=== PATIENT | female | born 1970 | race American Indian/Alaskan Native ===

== ENCOUNTER 2018-09-04 23:47 | Emergency (ER) | payer OTHER ==
[2018-09-05] MEDS ORDERED: BENADRYL IV ONE (00:23)
[2018-09-05] MEDS ORDERED: SUBLIMAZE IV ONE (00:23)
[2018-09-05] MEDS ORDERED: TORADOL IV ONE (00:25)
[2018-09-05] MEDS ORDERED: REGLAN IV ONE (00:26)
[2018-09-05 00:48] LABS: Basophils % (Auto) 0.3 % (0.0-1.8); Hematocrit 48.7 % (30.3-42.9); Hemoglobin 16.1 gm/dl (10.1-14.3); Lymphocytes # (Auto) 1.4 K/mm3 (1.2-5.4); Lymphocytes % (Auto) 16.9 % (13.4-35.0); Mean Corpuscular HGB Conc 33 % (30-34); Mean Corpuscular Volume 87 fl (79-97); Monocytes # (Auto) 0.1 K/mm3 (0.0-0.8); Monocytes % (Auto) 0.7 % (0.0-7.3); Platelet Count 280 K/mm3 (140-440); Red Blood Count 5.63 M/mm3 (3.65-5.03); Red Cell Distribution Width 13.7 % (13.2-15.2)
[2018-09-05 01:01] LABS: BUN/Creatinine Ratio 13; Blood Urea Nitrogen 12 mg/dL (7-17); Calcium 10.5 mg/dL (8.4-10.2); Hemolysis Index 14
--- NOTE | 2018-09-05 01:38 | Cat Scan Report ---
FINAL REPORT EXAM: CT HEAD/BRAIN WO CON HISTORY: headache COMPARISON: CT of the head from November 2015. TECHNIQUE: Axial images obtained skull base through vertex. FINDINGS: No acute intracranial hemorrhage, midline shift or pathologic extra axial fluid collection. Benign pu nctate calcification bilateral basal ganglia. Ventricles and cisterns are normal in size and configur ation for the patient's age. Rizvi-white differentiation preserved. Calvarium grossly intact. Visualiz ed ocular globes are grossly unremarkable. IMPRESSION: No grossly acute intracranial abnormality.
[2018-09-05] MEDS ORDERED: HumuLIN R IV ONE (01:56)
[2018-09-05] MEDS ORDERED: ZOFRAN IV ONE (02:04)
[2018-09-05] MEDS ORDERED: DILAUDID IV ONE ×2 (02:04→02:57)
--- NOTE | 2018-09-05 03:33 | Emergency Department Report ---
ED Headache HPI - General Chief Complaint: Headache Stated Complaint: CLUSTER HEADACHER Time Seen by Provider: 09/05/18 00:23 Source: patient, old records Exam Limitations: no limitations - History of Present Illness Initial Comments: 48-year-old female with a past medical history of cluster headaches, CVA with residual left-sided facial droop, COPD, hypertension, and obesity presents to the hospital complains of a left sided headache 4 days. Pain is intermittent, sharp in nature, and rated 10/10 in intensity. States she feels like a knife and stabbing left-sided for forehead and eye. She complains of some blurred vision to the left eye. Patient has had similar symptoms with cluster headaches in the past but this is more severe. Last cluster headache was approximately 4 months ago. Patient saw a primary care doctor today and received IM Toradol and Solu-Medrol. Patient apparently is on Imitrex and Seroquel, Atarax, and Remeron. Patient took 2 doses of her Imitrex prior to arrival. Positive nausea without pain without vomiting. No complaints of fever or new neurologic deficit. PMD: [place] Allergies/Adverse Reactions: Allergies lisinopril Allergy (Verified 05/06/13 10:48) Vomiting Home Medications: Ambulatory Orders Lortab 10 mg-300 mg/15 ml Elxr 12/11/14 Simvastatin 10 mg PO QHS 12/11/14 Verapamil ER [Calan SR] 240 mg PO BID 12/11/14 hydroCHLOROthiazide [Hctz] 25 mg PO QDAY 12/11/14 oxyCODONE /ACETAMINOPHEN [Percocet 5/325] 1 tab PO Q6HR PRN #20 tablet 12/11/14 Promethazine HCl [Phenergan] 25 mg RC PRN PRN #12 supp.rect 01/27/15 methylPREDNISolone [Medrol Dose Hi] 4 mg PO .TAPER #1 tab.ds.pk 01/27/15 Butalbit/Acetamin/Caff/Codeine [Fioricet/Codeine [id number]] 1 cap PO Q6HR PRN #20 cap 06/24/15 Albuterol Sulfate [Ventolin HFA] 2 puff IH Q4H PRN #1 hfa.aer.ad 10/07/15 Benzonatate [Tessalon Perles] 100 mg PO Q8HR #30 capsule 10/07/15 HYDROcodone/APAP 5-325 [[place] 5/325] 1 each PO Q4HR PRN #20 tablet 10/07/15 Ibuprofen [Motrin] 800 mg PO Q8HR PRN #30 tablet 10/07/15 Ondansetron [Zofran Odt] 4 mg PO Q6HR PRN #20 tab.rapdis 10/07/15 Prednisone [predniSONE 10 mg (6-Day Pack, 21 Tabs)] 10 mg PO .TAPER #1 tab.ds.pk 10/07/15 ED Review of Systems ROS: Stated complaint: CLUSTER HEADACHER Other details as noted in HPI Comment: All other systems reviewed and negative ED Past Medical Hx - Past Medical History Hx Hypertension: Yes Hx CVA: Yes Hx Heart Attack/AMI: No Hx Congestive Heart Failure: No Hx Diabetes: No Hx Deep Vein Thrombosis: No Hx Pulmonary Embolism: No Hx GERD: No Hx Liver Disease: No Hx Renal Disease: No Hx Sickle Cell Disease: No Hx Arthritis: No Hx Headaches / Migraines: Yes (cluster headache seen by neurologist Dr. Silver out of [facility]) Hx Seizures: No Hx Kidney Stones: Yes (lithotripsy) Hx Psychiatric Treatment: No Hx Asthma: No Hx COPD: Yes Hx Tuberculosis: No Hx Dementia: No Hx HIV: No - Surgical History Past Surgical History?: Yes Hx Coronary Stent: No Hx Open Heart Surgery: No Hx Pacemaker: No Hx Internal Defibrillator: No Hx Cholecystectomy: No Hx Appendectomy: Yes Hx Breast Surgery: No Additional Surgical History: x 3 - Social History Smoking Status: Never Smoker Substance Use Type: Alcohol - Medications Home Medications: Home Medications Medication Instructions Recorded Confirmed Last Taken Type Lortab 10 mg-300 mg/15 ml Elxr 12/11/14 12/11/14 Unknown History Simvastatin 10 mg PO QHS 12/11/14 12/11/14 Unknown History Verapamil ER [Calan SR] 240 mg PO BID 12/11/14 12/11/14 Unknown History hydroCHLOROthiazide [Hctz] 25 mg PO QDAY 12/11/14 12/11/14 Unknown History oxyCODONE /ACETAMINOPHEN [Percocet 1 tab PO Q6HR PRN #20 tablet 12/11/14 Unknown Rx 5/325] Promethazine HCl [Phenergan] 25 mg RC PRN PRN #12 supp.rect 01/27/15 Unknown Rx methylPREDNISolone [Medrol Dose 4 mg PO .TAPER #1 tab.ds.pk 01/27/15 Unknown Rx Hi] Butalbit/Acetamin/Caff/Codeine 1 cap PO Q6HR PRN #20 cap 06/24/15 Unknown Rx [Fioricet/Codeine [id number]] Albuterol Sulfate [Ventolin HFA] 2 puff IH Q4H PRN #1 hfa.aer.ad 10/07/15 Unknown Rx Benzonatate [Tessalon Perles] 100 mg PO Q8HR #30 capsule 10/07/15 Unknown Rx HYDROcodone/APAP 5-325 [[place] 1 each PO Q4HR PRN #20 tablet 10/07/15 Unknown Rx 5/325] Ibuprofen [Motrin] 800 mg PO Q8HR PRN #30 tablet 10/07/15 Unknown Rx Ondansetron [Zofran Odt] 4 mg PO Q6HR PRN #20 tab.rapdis 10/07/15 Unknown Rx Prednisone [predniSONE 10 mg 10 mg PO .TAPER #1 tab.ds.pk 10/07/15 Unknown Rx (6-Day Pack, 21 Tabs)] ED Physical Exam - General Limitations: No Limitations - Other Other exam information: General: Positive distress, patient rocking, complaining of severe pain Head exam: Atraumatic, normocephalic Eyes exam: Pupils equal reactive to light. Left eye cornea abrasion noted partially in the pupil field. ENT: Moist mucous membrane Neck exam: Normal inspection, full range of motion, no meningismus nontender Respiratory exam: Clear to auscultation bilateral, no wheezes, rales, crackles Cardiovascular: Normal rate and rhythm, normal heart sounds Abdomen: Soft, nondistended, and nontender, with normal bowel sounds, no rebound, or guarding Extremity: Full range of motion normal inspection no deformity Back: Normal Inspection, full range of motion, no tenderness Neurologic: Alert, oriented x3, left upper and lower facial weakness chronic as per patient, sensation to extremities and strength equal bilaterally and grossly intact. Skin: Warm, dry, intact ED Course Vital Signs 09/04/18 09/05/18 09/05/18 23:54 00:18 00:30 Temperature 97.5 F L Pulse Rate 107 H Respiratory 20 Rate Blood Pressure 173/121 181/121 181/121 O2 Sat by Pulse 97 98 Oximetry 09/05/18 09/05/18 09/05/18 00:45 01:00 03:25 Temperature Pulse Rate Respiratory Rate Blood Pressure 184/111 152/116 149/100 O2 Sat by Pulse 98 Oximetry - Consultations Consultation #1: 09/05/18 03:[address] Gee with [facility]. Patient accepted for transfer due to intractable pain. ED Medical Decision Making - Lab Data Result diagrams: 09/05/18 00:33 09/05/18 00:33 Lab Results 09/05/18 09/05/18 09/05/18 Range/Units 00:33 00:33 00:33 WBC 8.5 (4.5-11.0) K/mm3 RBC 5.63 H (3.65-5.03) M/mm3 Hgb 16.1 H (10.1-14.3) gm/dl Hct 48.7 H (30.3-42.9) % MCV 87 (79-97) fl MCH 29 (28-32) pg MCHC 33 (30-34) % RDW 13.7 (13.2-15.2) % Plt Count 280 (140-440) K/mm3 Lymph % (Auto) 16.9 (13.4-35.0) % [place] % (Auto) 0.7 (0.0-7.3) % Eos % (Auto) 0.0 (0.0-4.3) % Baso % (Auto) 0.3 (0.0-1.8) % Lymph # 1.4 (1.2-5.4) K/mm3 [place] # 0.1 (0.0-0.8) K/mm3 Eos # 0.0 (0.0-0.4) K/mm3 Baso # 0.0 (0.0-0.1) K/mm3 Seg Neutrophils % 82.1 H (40.0-70.0) % Seg Neutrophils # 6.9 (1.8-7.7) K/mm3 Sodium 131 L (137-145) mmol/L Potassium 3.9 (3.6-5.0) mmol/L Chloride 96.3 L (98-107) mmol/L Carbon Dioxide 18 L (22-30) mmol/L Anion Gap 21 mmol/L BUN 12 (7-17) mg/dL Creatinine 0.9 (0.7-1.2) mg/dL Estimated GFR > 60 ml/min BUN/Creatinine Ratio 13 % Glucose 373 H (65-100) mg/dL POC Glucose (70-105) Hemoglobin A1c (4-6) % Calcium 10.5 H (8.4-10.2) mg/dL HCG, Qual Negative (Negative) 09/05/18 09/05/18 Range/Units 00:33 02:23 WBC (4.5-11.0) K/mm3 RBC (3.65-5.03) M/mm3 Hgb (10.1-14.3) gm/dl Hct (30.3-42.9) % MCV (79-97) fl MCH (28-32) pg MCHC (30-34) % RDW (13.2-15.2) % Plt Count (140-440) K/mm3 Lymph % (Auto) (13.4-35.0) % [place] % (Auto) (0.0-7.3) % Eos % (Auto) (0.0-4.3) % Baso % (Auto) (0.0-1.8) % Lymph # (1.2-5.4) K/mm3 [place] # (0.0-0.8) K/mm3 Eos # (0.0-0.4) K/mm3 Baso # (0.0-0.1) K/mm3 Seg Neutrophils % (40.0-70.0) % Seg Neutrophils # (1.8-7.7) K/mm3 Sodium (137-145) mmol/L Potassium (3.6-5.0) mmol/L Chloride (98-107) mmol/L Carbon Dioxide (22-30) mmol/L Anion Gap mmol/L BUN (7-17) mg/dL Creatinine (0.7-1.2) mg/dL Estimated GFR ml/min BUN/Creatinine Ratio % Glucose (65-100) mg/dL POC Glucose 293 H (70-105) Hemoglobin A1c 6.6 H (4-6) % Calcium (8.4-10.2) mg/dL HCG, Qual (Negative) - Medical Decision Making Patient treated with Reglan, Benadryl, fentanyl, Toradol, Zofran, multiple doses of Dilaudid, and oxygen via nonrebreather and patient remains in distress and complaining of pain. Patient also is noted to have a cornea abrasion admits to rubbing her eye a lot secondary to pain. - Differential Diagnosis cluster, migraine, ICH, tension, sinusitis Critical Care Time: No Critical care attestation.: If time is entered above; I have spent that time in minutes in the direct care of this critically ill patient, excluding procedure time. ED Disposition Clinical Impression: Cluster headache, HTN (hypertension), Intractable pain Cornea abrasion Qualifiers: Laterality: left Disposition: DC/TX-70 ANOTHER TYPE HLTHCARE Is pt being admited?: No Condition: Stable Time of Disposition: 03:52
[2018-09-05 04:34] VITALS: BP 170/89
== END 2018-09-05 05:20 | disposition other institution (70) ==
LOC: ED 23:47
DX: G44.009 Cluster headache syndrome, unspecified, not intractable (principal); I10 Essential (primary) hypertension; J44.9 Chronic obstructive pulmonary disease, unspecified; E66.9 Obesity, unspecified; Z68.33 Body mass index [BMI] 33.0-33.9, adult; Z88.8 Allergy status to other drugs, medicaments and biological substances
CPT/HCPCS: 36415; 70450; 80048; 82962; 83036; 84703; 85025; 96374; 96375; 96376; 99285; J1170; J1200; J1885; J2405; J2765; J3010; J1815

== ENCOUNTER 2019-05-11 21:21 | Emergency (ER) | payer OTHER ==
[2019-05-11] MEDS ORDERED: ONDANSETRON 4 MG/2 ML INJ ONE (21:49)
[2019-05-11 22:00] LABS: Hematocrit 46.4 % (30.3-42.9); Hemoglobin 15.1 gm/dl (10.1-14.3); Mean Corpuscular HGB Conc 33 % (30-34); Mean Corpuscular Volume 85 fl (79-97); Platelet Count 292 K/mm3 (140-440); Red Blood Count 5.45 M/mm3 (3.65-5.03); Red Cell Distribution Width 13.8 % (13.2-15.2)
[2019-05-11] MEDS ORDERED: ONDANSETRON 4 MG/2 ML INJ IV ONE ×2 (22:05→22:48)
[2019-05-11] MEDS ORDERED: cephALEXin 500 MG CAP PO ONE (22:16)
[2019-05-11 22:30] LABS: BUN/Creatinine Ratio 13; Blood Urea Nitrogen 10 mg/dL (7-17); Calcium 9.5 mg/dL (8.4-10.2); Hemolysis Index 20
--- NOTE | 2019-05-11 22:30 | Emergency Department Report ---
HPI - General Chief Complaint: GI Bleed Time Seen by Provider: 05/11/19 21:57 - HPI HPI: 48-year-old -[place] female presents to the emergency department, brought in by her friend, after the patient passed out in her yard. The patient called her friend and told her that she had a blood sugar of about 30 and that was the reason why she passed out. She then proceeded to take her insulin to treat the hypoglycemia. Her friend says that she was eating a popsicle on the way in as well. Her main complaint is lower abdominal pain, nausea and vomi ting. Apparently she also told her friend that she has been having some rectal bleeding over the past 3 days. The patient has a past mental history of insulin-dependent diabetes, hypertension and a previous CVA without residual deficits. The patient later admitted to having some alcoholic drinks earlier while watching football says it is the low blood sugar that caused her to pass out. ED Past Medical Hx - Past Medical History Previous Medical History?: Yes Hx Hypertension: Yes Hx CVA: Yes Hx Heart Attack/AMI: No Hx Congestive Heart Failure: No Hx Diabetes: No Hx Deep Vein Thrombosis: No Hx Pulmonary Embolism: No Hx GERD: No Hx Liver Disease: No Hx Renal Disease: No Hx Sickle Cell Disease: No Hx Arthritis: No Hx Headaches / Migraines: Yes (cluster headache seen by neurologist Dr. Silver out of [facility]) Hx Seizures: No Hx Kidney Stones: Yes (lithotripsy) Hx Psychiatric Treatment: No Hx Asthma: No Hx COPD: Yes Hx Tuberculosis: No Hx Dementia: No Hx HIV: No - Surgical History Past Surgical History?: Yes Hx Coronary Stent: No Hx Open Heart Surgery: No Hx Pacemaker: No Hx Internal Defibrillator: No Hx Cholecystectomy: No Hx Appendectomy: Yes Hx Breast Surgery: No Additional Surgical History: x 3 - Social History Smoking Status: Never Smoker - Medications Home Medications: Home Medications Medication Instructions Recorded Confirmed Last Taken Type Lortab 10 mg-300 mg/15 ml Elxr 12/11/14 12/11/14 Unknown History Simvastatin 10 mg PO QHS 12/11/14 12/11/14 Unknown History Verapamil ER [Calan SR] 240 mg PO BID 12/11/14 12/11/14 Unknown History hydroCHLOROthiazide [Hctz] 25 mg PO QDAY 12/11/14 12/11/14 Unknown History oxyCODONE /ACETAMINOPHEN [Percocet 1 tab PO Q6HR PRN #20 tablet 12/11/14 Unknown Rx 5/325] Promethazine HCl [Phenergan] 25 mg RC PRN PRN #12 supp.rect 01/27/15 Unknown Rx methylPREDNISolone [Medrol Dose 4 mg PO .TAPER #1 tab.ds.pk 01/27/15 Unknown Rx Hi] Butalbit/Acetamin/Caff/Codeine 1 cap PO Q6HR PRN #20 cap 06/24/15 Unknown Rx [Fioricet/Codeine [id number]] Albuterol Sulfate [Ventolin HFA] 2 puff IH Q4H PRN #1 hfa.aer.ad 10/07/15 Unknown Rx Benzonatate [Tessalon Perles] 100 mg PO Q8HR #30 capsule 10/07/15 Unknown Rx HYDROcodone/APAP 5-325 [[place] 1 each PO Q4HR PRN #20 tablet 10/07/15 Unknown Rx 5/325] Ibuprofen [Motrin] 800 mg PO Q8HR PRN #30 tablet 10/07/15 Unknown Rx Ondansetron [Zofran Odt] 4 mg PO Q6HR PRN #20 tab.rapdis 10/07/15 Unknown Rx Prednisone [predniSONE 10 mg 10 mg PO .TAPER #1 tab.ds.pk 10/07/15 Unknown Rx (6-Day Pack, 21 Tabs)] ED Review of Systems ROS: Stated complaint: ABDOMINAL PAIN Other details as noted in HPI Comment: All other systems reviewed and negative Constitutional: denies: chills, fever Eyes: denies: eye pain, vision change ENT: denies: ear pain, throat pain Respiratory: denies: cough, shortness of breath Cardiovascular: syncope. denies: chest pain Gastrointestinal: abdominal pain, nausea, vomiting Genitourinary: denies: dysuria, discharge Musculoskeletal: denies: back pain, arthralgia Skin: denies: rash, lesions Neurological: denies: headache, weakness Physical Exam - Physical Exam Vital Signs: Vital Signs 05/11/19 05/11/19 21:27 21:32 Temperature 98.9 F Pulse Rate 115 H Respiratory 24 24 Rate Blood Pressure 148/89 O2 Sat by Pulse 99 99 Oximetry Physical Exam: GENERAL: Patient is sitting up in bed vomiting into a bag. HENT: Normocephalic. Atraumatic. Patient has moist mucous membranes. EYES: Extraocular motions are intact. Pupils equal reactive to light bilaterally. NECK: Supple. Trachea is midline. CHEST/LUNGS: Clear to auscultation. There is no respiratory distress noted. HEART/CARDIOVASCULAR: Regular. There is mild tachycardia. There is no murmur. ABDOMEN: Abdomen is soft. Lower abdominal tenderness to palpation. No g uarding. Patient has normal bowel sounds. There is no abdominal distention. SKIN: Skin is warm and dry. NEURO: The patient is awake and cooperative but does appear intoxicated. The patient has no focal neurologic deficits. Normal speech. Cranial nerves II through XII grossly intact. MUSCULOSKELETAL: There is no tenderness or deformity. There is no evidence of acute injury. RECTAL: There is a small nonthrombosed hemorrhoid at the 7 o'clock position. No gross blood seen. Stool negative on guaiac testing but there is not much stool available. ED Course Vital Signs 05/11/19 05/11/19 21:27 21:32 Temperature 98.9 F Pulse Rate 115 H Respiratory 24 24 Rate Blood Pressure 148/89 O2 Sat by Pulse 99 99 Oximetry - Reevaluation(s) Reevaluation #1: 05/12/19 01:43 Lab Results 05/11/19 05/11/19 05/11/19 Range/Units 21:30 21:30 21:30 WBC 11.0 (4.5-11.0) K/mm3 RBC 5.45 H (3.65-5.03) M/mm3 Hgb 15.1 H (10.1-14.3) gm/dl Hct 46.4 H (30.3-42.9) % MCV 85 (79-97) fl MCH 28 (28-32) pg MCHC 33 (30-34) % RDW 13.8 (13.2-15.2) % Plt Count 292 (140-440) K/mm3 Lymph # Afloat Cryptologic Manager Add Manual Diff Complete Total Counted 100 Seg Neuts % (Manual) 47.0 (40.0-70.0) % Band Neutrophils % 0 % Lymphocytes % (Manual) 46.0 H (13.4-35.0) % Reactive Lymphs % (Man) 0 % Monocytes % (Manual) 6.0 (0.0-7.3) % Eosinophils % (Manual) 1.0 (0.0-4.3) % Basophils % (Manual) 0 (0.0-1.8) % Metamyelocytes % 0 % Myelocytes % 0 % Promyelocytes % 0 % Blast Cells % 0 % Nucleated RBC % Not Reportable Seg Neutrophils # Man 5.2 (1.8-7.7) K/mm3 Band Neutrophils # 0.0 K/mm3 Lymphocytes # (Manual) 5.1 (1.2-5.4) K/mm3 Abs React Lymphs (Man) 0.0 K/mm3 Monocytes # (Manual) 0.7 (0.0-0.8) K/mm3 Eosinophils # (Manual) 0.1 (0.0-0.4) K/mm3 Basophils # (Manual) 0.0 (0.0-0.1) K/mm3 Metamyelocytes # 0.0 K/mm3 Myelocytes # 0.0 K/mm3 Promyelocytes # 0.0 K/mm3 Blast Cells # 0.0 K/mm3 WBC Morphology Not Reportable Hypersegmented Neuts Not Reportable Hyposegmented Neuts Not Reportable Hypogranular Neuts Not Reportable Smudge Cells Not Reportable Toxic Granulation Not Reportable Toxic Vacuolation Not Reportable Dohle Bodies Not Reportable Pelger-Huet Anomaly Not Reportable Omar Rods Not Reportable Platelet Estimate Appears normal Clumped Platelets Not Reportable Plt Clumps, EDTA Not Reportable Large Platelets Not Reportable Giant Platelets Not Reportable Platelet Satelliting Not Reportable Plt Morphology Comment Not Reportable RBC Morphology Not Reportable Dimorphic RBCs Not Reportable Polychromasia Not Reportable Hypochromasia Not Reportable Poikilocytosis Not Reportable Anisocytosis 1+ Microcytosis Not Reportable Macrocytosis Not Reportable Spherocytes Not Reportable Pappenheimer Bodies Not Reportable Sickle Cells Not Reportable Target Cells Not Reportable Tear Drop Cells Few Ovalocytes Not Reportable Helmet Cells Not Reportable [place]ila-[place] Bodies Not Reportable Indiahoma Rings Not Reportable [place] Cells Not Reportable Bite Cells Not Reportable Crenated Cell Not Reportable Elliptocytes Not Reportable Acanthocytes (Spur) Not Reportable Rouleaux Not Reportable Hemoglobin C Crystals Not Reportable Schistocytes Not Reportable Malaria parasites Not Reportable Jose Bodies Not Reportable Hem Pathologist Commnt No VBG pH (7.320-7.420) Sodium 137 (137-145) mmol/L Potassium 4.1 (3.6-5.0) mmol/L Chloride 95.9 L (98-107) mmol/L Carbon Dioxide 19 L (22-30) mmol/L Anion Gap 26 mmol/L BUN 10 (7-17) mg/dL Creatinine 0.8 (0.7-1.2) mg/dL Estimated GFR > 60 ml/min BUN/Creatinine Ratio 13 % Glucose 349 H (65-100) mg/dL Calcium 9.5 (8.4-10.2) mg/dL Total Bilirubin (0.1-1.2) mg/dL Direct Bilirubin (0-0.2) mg/dL Indirect Bilirubin mg/dL AST (5-40) units/L ALT (7-56) units/L Alkaline Phosphatase (35-129) units/L Total Protein (6.3-8.2) g/dL Albumin (3.9-5) g/dL Albumin/Globulin Ratio % HCG, Qual (Negative) Plasma/Serum Alcohol 0.23 H (0-0.07) % 05/11/19 05/11/19 05/11/19 Range/Units 22:40 22:40 22:40 WBC (4.5-11.0) K/mm3 RBC (3.65-5.03) M/mm3 Hgb (10.1-14.3) gm/dl Hct (30.3-42.9) % MCV (79-97) fl MCH (28-32) pg MCHC (30-34) % RDW (13.2-15.2) % Plt Count (140-440) K/mm3 Lymph # Add Manual Diff Total Counted Seg Neuts % (Manual) (40.0-70.0) % Band Neutrophils % % Lymphocytes % (Manual) (13.4-35.0) % Reactive Lymphs % (Man) % Monocytes % (Manual) (0.0-7.3) % Eosinophils % (Manual) (0.0-4.3) % Basophils % (Manual) (0.0-1.8) % Metamyelocytes % % Myelocytes % % Promyelocytes % % Blast Cells % % Nucleated RBC % Seg Neutrophils # Man (1.8-7.7) K/mm3 Band Neutrophils # K/mm3 Lymphocytes # (Manual) (1.2-5.4) K/mm3 Abs React Lymphs (Man) K/mm3 Monocytes # (Manual) (0.0-0.8) K/mm3 Eosinophils # (Manual) (0.0-0.4) K/mm3 Basophils # (Manual) (0.0-0.1) K/mm3 Metamyelocytes # K/mm3 Myelocytes # K/mm3 Promyelocytes # K/mm3 Blast Cells # K/mm3 WBC Morphology Hypersegmented Neuts Hyposegmented Neuts Hypogranular Neuts Smudge Cells Toxic Granulation Toxic Vacuolation Dohle Bodies Pelger-Huet Anomaly Omar Rods Platelet Estimate Clumped Platelets Plt Clumps, EDTA Large Platelets Giant Platelets Platelet Satelliting Plt Morphology Comment RBC Morphology Dimorphic RBCs Polychromasia Hypochromasia Poikilocytosis Anisocytosis Microcytosis Macrocytosis Spherocytes Pappenheimer Bodies Sickle Cells Target Cells Tear Drop Cells Ovalocytes Helmet Cells Brambila-[place] Bodies Indiahoma Rings [place] Cells Bite Cells Crenated Cell Elliptocytes Acanthocytes (Spur) Rouleaux Hemoglobin C Crystals Schistocytes Malaria parasites Jose Bodies Hem Pathologist Commnt VBG pH 7.380 (7.320-7.420) Sodium (137-145) mmol/L Potassium (3.6-5.0) mmol/L Chloride (98-107) mmol/L Carbon Dioxide (22-30) mmol/L Anion Gap mmol/L BUN (7-17) mg/dL Creatinine (0.7-1.2) mg/dL Estimated GFR ml/min BUN/Creatinine Ratio % Glucose (65-100) mg/dL Calcium (8.4-10.2) mg/dL Total Bilirubin 0.40 (0.1-1.2) mg/dL Direct Bilirubin < 0.2 (0-0.2) mg/dL Indirect Bilirubin 0.2 mg/dL AST 87 H (5-40) units/L ALT 88 H (7-56) units/L Alkaline Phosphatase 138 H (35-129) units/L Total Protein 7.6 (6.3-8.2) g/dL Albumin 4.4 (3.9-5) g/dL Albumin/Globulin Ratio 1.4 % HCG, Qual Negative (Negative) Plasma/Serum Alcohol (0-0.07) % ED Medical Decision Making - Lab Data Result diagrams: 05/11/19 21:30 05/11/19 21:30 - EKG Data -: EKG Interpreted by Me EKG shows normal: sinus rhythm, axis, intervals, QRS complexes, ST-T waves Rate: normal - EKG Data When compared to previous EKG there are: previous EKG unavailable Interpretation: normal EKG - Radiology Data Radiology results: report reviewed CT ABDOMEN AND PELVIS WITH CONTRAST INDICATION / CLINICAL INFORMATION: Abd pain. TECHNIQUE: Axial CT images were obtained through the abdomen and pelvis after 100 mL Omnipaque [address] scans at this location are performed using CT dose reduction for ALARA by means of automated exposure control. COMPARISON: None available. FINDINGS: LOWER CHEST: Visualized lung bases are clear. Several mildly prominent but not technically enlarged hilar lymph nodes are seen. LIVER: Hepatomegaly and hepatic steatosis. Scattered areas of hyperattenuation within the liver likely represent fat sparing. BILIARY SYSTEM: No significant abnormality. PANCREAS: No significant abnormality. SPLEEN: No significant abnormality. ADRENALS: No significant abnormality. KIDNEYS and URETERS: Several bilateral subcentimeter renal low densities, too small to characterize but statistically benign. Punctate nonobstructive stone in the left upper pole. STOMACH / BOWEL: Scattered colonic diverticula without CT evidence of acute diverticulitis. The appendix is not definitively seen but there is no CT evidence of acute appendicitis. PERITONEUM: No free fluid. No free air. No fluid collection. LYMPH NODES: No significant adenopathy. VASCULAR STRUCTURES: No significant abnormality. URINARY BLADDER: No significant abnormality. REPRODUCTIVE ORGANS: No significant abnormality. ADDITIONAL FINDINGS: None. SKELETAL SYSTEM: No significant abnormality. IMPRESSION: 1. No acute process identified within the abdomen or pelvis to explain patient's abdominal pain. 2. Hepatomegaly and hepatic steatosis. 3. Punctate nonobstructive left renal stone. - Medical Decision Making This patient presents to the emergency department with complaint of abdominal pain. There also was some type of questionable syncopal episode earlier in the evening. Since my examination, the patient has been awake, alert and oriented, although she does appear intoxicated. The patient says that her blood sugar was 30 and therefore she took her insulin as treatment but also says that she ate 2 popsicles. Her blood sugar came back at about 340 from serum blood draw. She was given a liter of IV fluid and 6 units of IV insulin and her blood sugar came down to about 200. The rest the patient's labs are mostly unremarkable except for some elevated LFTs. A CT scan of the abdomen and pelvis was done with IV contrast that does not show any acute process but does show some hepatomegaly and hepatic steatosis. The patient says she is aware of a history of fatty liver disease. She also is complaining of some rectal bleeding. On examination there is no gross blood and the small amount of stool obtained was negative on guaiac testing. She had a hemoglobin of greater than 15. Her vital signs are stable throughout her ED course. Patient is feeling improved. The patient did not leave a urine sample to test for urinary tract infection, but did not want to stay any further to wait for a urinalysis. Patient has [employer] insurance and therefore has good follow-up with primary care and should have easy access to gastroenterology. She was given a referral for [facility], just in case, and understands that she needs to follow-up with gastroenterology regarding her abdominal pain and rectal bleeding, and may need a colonoscopy in the near future. Otherwise she has been instructed to return to the emergency Department with any worsening of her symptoms or any acute distress. - Differential Diagnosis alcohol intoxication, hypoglycemia, DKA, hemorrhoids, malignancy Critical Care Time: No Critical care attestation.: If time is entered above; I have spent that time in minutes in the direct care of this critically ill patient, excluding procedure time. ED Disposition Clinical Impression: Rectal bleeding, Elevated liver enzymes Alcohol intoxication Qualifiers: Complication of substance-induced condition: uncomplicated Qualified Code(s): F10.920 - Alcohol use, unspecified with intoxication, uncomplicated Abdominal pain Qualifiers: Abdominal location: lower abdomen, unspecified Qualified Code(s): R10.30 - Lower abdominal pain, unspecified Disposition: DC-01 TO HOME OR SELFCARE Is pt being admited?: No Condition: Stable Instructions: Rectal Bleeding (ED), Alcohol Intoxication (ED), Abdominal Pain (ED) Additional Instructions: Please follow-up with your primary care physician in the next few days. I am giving him a referral for a local conventions assistant, Dr. Sneed, to follow up regarding the rectal bleeding and abdominal pain. You may need to see someone through the [employer] system. Return to the emergency Department with any worsening of your symptoms or any acute distress. Referrals: SHASHANK BACH [Other] - 2-3 Days YARED SNEED MD [Staff Physician] - 2-3 Days Forms: Accompanied Note Time of Disposition: 01:05
[2019-05-11] MEDS ORDERED: INSULIN REGULAR, HUMAN 100 UNITS/1 ML IV ONE (22:38)
[2019-05-11] MEDS ORDERED: SODIUM CHLORIDE 0.9% 1000 ML 1,000 ML IV ONE (22:38)
[2019-05-11 22:43] LABS: Basophils % (Manual) 0 % (0.0-1.8); Total Cells Counted 100
[2019-05-11 22:44] VITALS: BP 102/46
[2019-05-11 22:44] LABS: Anisocytosis 1+
[2019-05-11 22:45] LABS: Tear Drop Cells Few
[2019-05-11 23:36] LABS: Alanine Aminotransferase 88 units/L (7-56); Albumin 4.4 g/dL (3.9-5)
[2019-05-11 23:42] LABS: Bilirubin,Direct < 0.2 mg/dL (0-0.2)
--- NOTE | 2019-05-12 00:51 | Cat Scan Report ---
CT ABDOMEN AND PELVIS WITH CONTRAST INDICATION / CLINICAL INFORMATION: Abd pain. TECHNIQUE: Axial CT images were obtained through the abdomen and pelvis after 100 mL Omnipaque [address] scans at this location are performed using CT dose reduction for ALARA by means of automated exposure control. COMPARISON: None available. FINDINGS: LOWER CHEST: Visualized lung bases are clear. Several mildly prominent but not technically enlarged h ilar lymph nodes are seen. LIVER: Hepatomegaly and hepatic steatosis. Scattered areas of hyperattenuation within the liver likel y represent fat sparing. BILIARY SYSTEM: No significant abnormality. PANCREAS: No significant abnormality. SPLEEN: No significant abnormality. ADRENALS: No significant abnormality. KIDNEYS and URETERS: Several bilateral subcentimeter renal low densities, too small to characterize b ut statistically benign. Punctate nonobstructive stone in the left upper pole. STOMACH / BOWEL: Scattered colonic diverticula without CT evidence of acute diverticulitis. The appen rosalina is not definitively seen but there is no CT evidence of acute appendicitis. PERITONEUM: No free fluid. No free air. No fluid collection. LYMPH NODES: No significant adenopathy. VASCULAR STRUCTURES: No significant abnormality. URINARY BLADDER: No significant abnormality. REPRODUCTIVE ORGANS: No significant abnormality. ADDITIONAL FINDINGS: None. SKELETAL SYSTEM: No significant abnormality. IMPRESSION: 1. No acute process identified within the abdomen or pelvis to explain patient's abdominal pain. 2. Hepatomegaly and hepatic steatosis. 3. Punctate nonobstructive left renal stone. Signer Name: Aleena Restrepo MD Signed: 05/12/2019 12:46 AM Workstation Name: [id number]
== END 2019-05-12 01:21 | disposition home or self-care (01) ==
LOC: ED 21:21
DX: K62.5 Hemorrhage of anus and rectum (principal); F10.920 Alcohol use, unspecified with intoxication, uncomplicated; I10 Essential (primary) hypertension; G43.909 Migraine, unspecified, not intractable, without status migrainosus; J44.9 Chronic obstructive pulmonary disease, unspecified; Z86.73 Personal history of transient ischemic attack (TIA), and cerebral infarction without residual deficits; Z98.890 Other specified postprocedural states; Z90.49 Acquired absence of other specified parts of digestive tract; Z79.899 Other long term (current) drug therapy; Z88.8 Allergy status to other drugs, medicaments and biological substances
CPT/HCPCS: 36415; 74177; 80048; 80076; 82805; 82962; 84703; 85007; 85025; 93005; 93010; 96374; 96375; 96376; 99284; J2405; J7030; Q9967; 80320; G0480; J1815

== ENCOUNTER 2019-06-04 15:38 | Emergency (ER) | payer OTHER ==
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
[2019-06-04 16:40] VITALS: BP 138/88
== END 2019-06-04 16:45 | disposition home or self-care (01) ==
LOC: ED 15:38
DX: G44.009 Cluster headache syndrome, unspecified, not intractable (principal); I10 Essential (primary) hypertension; J44.9 Chronic obstructive pulmonary disease, unspecified; Z88.8 Allergy status to other drugs, medicaments and biological substances; Z87.442 Personal history of urinary calculi
CPT/HCPCS: 82962; 99284

== ENCOUNTER 2020-07-04 10:26 | Emergency (ER) | payer OTHER ==
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
[2020-07-04 14:51] LABS: Basophils # (Auto) 0.1 K/mm3 (0.0-0.1); Basophils % (Auto) 0.8 % (0.0-1.8); Eosinophils % (Auto) 0.5 % (0.0-4.3); Hematocrit 48.6 % (30.3-42.9); Hemoglobin 16.1 gm/dl (10.1-14.3); Lymphocytes # (Auto) 3.8 K/mm3 (1.2-5.4); Lymphocytes % (Auto) 48.3 % (13.4-35.0); Mean Corpuscular HGB Conc 33 % (30-34); Mean Corpuscular Volume 88 fl (79-97); Monocytes # (Auto) 0.5 K/mm3 (0.0-0.8); Monocytes % (Auto) 5.9 % (0.0-7.3); Platelet Count 302 K/mm3 (140-440); Red Blood Count 5.53 M/mm3 (3.65-5.03); Red Cell Distribution Width 15.2 % (13.2-15.2)
[2020-07-04 15:09] LABS: Alanine Aminotransferase 108 units/L (7-56); Albumin 3.9 g/dL (3.9-5); Blood Urea Nitrogen 7 mg/dL (7-17); Calcium 8.8 mg/dL (8.4-10.2); Hemolysis Index 10
[2020-07-04] MEDS ORDERED: POTASSIUM CHLORIDE ER 20 MEQ TAB PO ONE (15:11)
[2020-07-04 15:15] LABS: BUN/Creatinine Ratio 10
[2020-07-04 16:39] LABS: Bilirubin,Urine NEG (Negative); Blood,Urine SM (Negative); Color,Urine Yellow (Yellow); Mucus,Urine 3+ /HPF; Urobilinogen,Urine < 2.0 mg/dL (<2.0)
[2020-07-04 16:46] LABS: Amphetamine Screen,Urine Negative; Benzodiazepines Screen,Urine Negative; Cannabinoid Screen,Urine Negative; Cocaine Screen,Urine Negative; Methadone Screen,Urine Negative; Opiate Screen,Urine Negative
[2020-07-05] MEDS ORDERED: ONDANSETRON 4 MG ODT TAB ONE (06:22)
[2020-07-05] MEDS ORDERED: ONDANSETRON 4 MG ODT TAB PO ONE (06:24)
[2020-07-05 07:52] VITALS: BP 166/63
== END 2020-07-05 08:27 ==
LOC: ED 10:26 → EEVIPCON 10:26 → ED 07-05 08:27
DX: F20.9 Schizophrenia, unspecified (principal); I10 Essential (primary) hypertension; N20.0 Calculus of kidney; J44.9 Chronic obstructive pulmonary disease, unspecified; Z86.73 Personal history of transient ischemic attack (TIA), and cerebral infarction without residual deficits; Z79.4 Long term (current) use of insulin; Z79.82 Long term (current) use of aspirin; Z79.899 Other long term (current) drug therapy; Z88.8 Allergy status to other drugs, medicaments and biological substances
CPT/HCPCS: 36415; 80053; 80307; 80320; 81001; 82805; 82962; 84703; 85025; G0480; Q0162

== ENCOUNTER 2021-05-15 12:39 | Emergency (ER) | payer OTHER ==
[2021-05-15] MEDS ORDERED: LORazepam 2 MG/ML VIAL IM ONE (12:59)
--- NOTE | 2021-05-15 13:03 | Emergency Department Report ---
ED Alcohol HPI - General Stated Complaint: MH EVAL Time Seen by Provider: 05/15/21 12:43 Source: EMS Mode of arrival: Stretcher - History of Present Illness Initial Comments: 50-year-old female, history of alcohol abuse, schizophrenia, bipolar disorder, hypertension, diabetes, presents to ED for evaluation. Per EMS, patient was released from [place] on yesterday for alcohol detox. Patient apparently told EMS that they released her too soon. Patient's son called EMS because patient was agitated and violent with him. When EMS arrived, they found patient in her room drinking a bottle of peach vodka. Patient apparently made the statement that she wanted to kill "herself and everybody else." At this time, patient is intoxicated, agitated, yelling, cursing, not answering any questions directly MD Complaint: alcohol intoxication Last Drink: just KENNEL KEEPER Chronic Alcohol Use: Yes Associated Symptoms: denies other symptoms Treatments Prior to Arrival: physical restraints - Related Data Home Medications Medication Instructions Recorded Confirmed Last Taken Aspirin [Aspirin BABY CHEW TAB] 81 mg PO QDAY 11/03/19 11/03/19 Unknown Insulin NPH Hum/Reg Insulin Hm 50 unit SQ BID 11/03/19 11/03/19 Unknown [HumuLIN 70/30 Kwikpen] Insulin Regular, Human [HumuLIN R] 10 unit SQ DAILY 11/03/19 11/03/19 Unknown Quetiapine Fumarate [SEROquel] 50 mg PO QDAY 11/03/19 11/03/19 Unknown Quetiapine Fumarate [SEROquel] 600 mg PO HS 11/03/19 11/03/19 Unknown amLODIPine 5 mg PO DAILY 11/03/19 11/03/19 Unknown hydroCHLOROthiazide 25 mg PO DAILY 11/03/19 11/03/19 Unknown [Hydrochlorothiazide] metFORMIN [Glucophage] 500 mg PO QDAY 11/03/19 11/03/19 Unknown Previous Rx's Medication Instructions Recorded Last Taken Type Pantoprazole [Protonix TAB] 40 mg PO BID #60 tablet 11/04/19 Unknown Rx Allergies Allergy/AdvReac Type Severity Reaction Status Date / Time lisinopril Allergy Vomiting Verified 05/16/21 08:12 ED Review of Systems ROS: Stated complaint: MH EVAL Other details as noted in HPI Comment: Unobtainable due to pts medical conditions Psychiatric: homicidal thoughts, suicidal thoughts ED Past Medical Hx - Past Medical History Hx Hypertension: Yes Hx CVA: Yes Hx Diabetes: Yes (per pt an admission on 07/04/20) Hx Headaches / Migraines: Yes (cluster headache seen by neurologist Dr. Silver out of [facility]) Hx Kidney Stones: Yes (lithotripsy) Hx COPD: Yes - Surgical History Hx Appendectomy: Yes Additional Surgical History: x 3 - Social History Smoking Status: Unknown if ever smoked Substance Use Type: None - Medications Home Medications: Home Medications Medication Instructions Recorded Confirmed Last Taken Type Aspirin [Aspirin BABY CHEW TAB] 81 mg PO QDAY 11/03/19 11/03/19 Unknown History Insulin NPH Hum/Reg Insulin Hm 50 unit SQ BID 11/03/19 11/03/19 Unknown History [HumuLIN 70/30 Kwikpen] Insulin Regular, Human [HumuLIN R] 10 unit SQ DAILY 11/03/19 11/03/19 Unknown History Quetiapine Fumarate [SEROquel] 50 mg PO QDAY 11/03/19 11/03/19 Unknown History Quetiapine Fumarate [SEROquel] 600 mg PO HS 11/03/19 11/03/19 Unknown History amLODIPine 5 mg PO DAILY 11/03/19 11/03/19 Unknown History hydroCHLOROthiazide 25 mg PO DAILY 11/03/19 11/03/19 Unknown History [Hydrochlorothiazide] metFORMIN [Glucophage] 500 mg PO QDAY 11/03/19 11/03/19 Unknown History Pantoprazole [Protonix TAB] 40 mg PO BID #60 tablet 11/04/19 Unknown Rx ED Physical Exam - General General appearance: alert, appears intoxicated - Head Head exam: Present: atraumatic, normocephalic - Eye Eye exam: Present: normal appearance - ENT ENT exam: Present: mucous membranes moist - Neck Neck exam: Present: normal inspection - Respiratory Respiratory exam: Present: normal lung sounds bilaterally. Absent: respiratory distress - Cardiovascular Cardiovascular Exam: Present: regular rate, normal rhythm - GI/Abdominal GI/Abdominal exam: Present: soft. Absent: distended - Extremities Exam Extremities exam: Present: normal inspection - Neurological Exam Neurological exam: Present: alert, oriented X3 - Psychiatric Psychiatric exam: Present: agitated, other (Patient is yelling, screaming, cursing, combative) - Skin Skin exam: Present: warm, dry, intact, normal color ED Course Vital Signs 05/15/21 05/15/21 05/15/21 12:58 13:02 13:09 Temperature Pulse Rate Respiratory Rate Blood Pressure Blood Pressure [Left] O2 Sat by Pulse 93 94 96 Oximetry 05/15/21 05/15/21 05/15/21 13:16 13:30 13:46 Temperature Pulse Rate Respiratory Rate Blood Pressure 99/57 102/65 Blood Pressure [Left] O2 Sat by Pulse 96 91 90 Oximetry 05/15/21 05/15/21 05/15/21 14:00 14:09 14:16 Temperature 98.1 F Pulse Rate Respiratory Rate Blood Pressure 105/61 107/76 Blood Pressure [Left] O2 Sat by Pulse 97 94 Oximetry 05/15/21 05/15/21 05/15/21 14:30 14:40 14:46 Temperature Pulse Rate 98 H Respiratory 12 Rate Blood Pressure 99/73 103/75 Blood Pressure 99/73 [Left] O2 Sat by Pulse 96 96 95 Oximetry 05/15/21 05/15/21 05/15/21 15:00 15:15 15:16 Temperature Pulse Rate 104 H Respiratory Rate Blood Pressure 105/61 107/77 Blood Pressure [Left] O2 Sat by Pulse 98 93 Oximetry 05/15/21 05/15/21 05/15/21 15:30 15:46 15:47 Temperature Pulse Rate 99 H Respiratory Rate Blood Pressure 103/75 106/72 Blood Pressure [Left] O2 Sat by Pulse 98 99 Oximetry 05/15/21 05/15/21 05/15/21 16:00 16:16 16:30 Temperature Pulse Rate Respiratory Rate Blood Pressure 103/70 85/46 84/43 Blood Pressure [Left] O2 Sat by Pulse 98 100 99 Oximetry 05/15/21 05/15/21 05/15/21 17:00 17:20 17:30 Temperature Pulse Rate 99 H 93 H Respiratory Rate Blood Pressure 103/55 114/75 Blood Pressure [Left] O2 Sat by Pulse 86 Oximetry 05/15/21 05/15/21 05/15/21 17:34 17:49 18:04 Temperature Pulse Rate Respiratory Rate Blood Pressure 119/77 95/65 91/58 Blood Pressure [Left] O2 Sat by Pulse Oximetry 05/15/21 05/15/21 05/15/21 18:20 18:36 18:55 Temperature Pulse Rate Respiratory Rate Blood Pressure 78/55 78/55 78/55 Blood Pressure [Left] O2 Sat by Pulse 95 98 Oximetry 05/15/21 05/15/21 05/15/21 19:49 22:38 22:48 Temperature Pulse Rate Respiratory Rate Blood Pressure 127/75 132/72 132/72 Blood Pressure [Left] O2 Sat by Pulse Oximetry 05/16/21 05/16/21 08:24 11:50 Temperature 98.2 F Pulse Rate 88 Respiratory 20 Rate Blood Pressure Blood Pressure 137/98 [Left] O2 Sat by Pulse 99 98 Oximetry - Reevaluation(s) Reevaluation #1: 05/15/21 15:32 Patient was given Ativan earlier and has been asleep for a while. She is currently more awake and alert at this time, although she is still quite intoxicated. Patient tells me she just wants to go home and go to another rehab. Patient states "I had a moment." She tells me her daughter recently. I asked the patient if she was having any suicidal thoughts. Patient will not directly answer this question with a yes or no, patient only states, "I'm fine," and begins to cry. I again asked patient if she is feeling suicidal, she again only states "I'm fine" and begins to cry again. We will continue to monitor patient. She will need a mental health evaluation. - Consultations Consultation #1: 05/16/21 13:33 Patient has been seen and evaluated by psychiatry team. 1013 has been resci nded. Patient denies any suicidal ideations. She will be discharged with outpatient referrals. ED Medical Decision Making - Lab Data Result diagrams: 05/15/21 12:57 05/15/21 12:57 Critical care attestation.: If time is entered above; I have spent that time in minutes in the direct care of this critically ill patient, excluding procedure time. ED Disposition Clinical Impression: Alcohol intoxication Disposition: 01 HOME / SELF CARE / HOMELESS Is pt being admited?: No Condition: Stable Instructions: Alcohol Use Disorder Additional Instructions: OUTPATIENT MENTAL HEALTH RESOURCES [facility], [facility] Luis Deluna MD: [address] [place] [address] [place] [address] [place] [address] [facility]: [facility] [address] [place] [address] [place] [address] [phone] [facility]: [facility]: [address] [facility] [address] [place] [address] [facility] [address] [facility]: Burton Fleming MD: [address] [facility] [address] [facility] [address] [facility]: [address] [place], [place] [address]ate [place], [place] [id number] [phone] HI CRISIS AND ACCESS LINE: SUBSTANCE ABUSE PROGRAMS: [facility]: Location: [place], [place] [employer] Address: [address] [place] [address] [facility]: Address: [address] [place] [address] [facility]: Address: [address] [place] [address] [facility] Community: Address: [address] [place] [address] [facility] Address: [address] [place] [id number]. Referrals: PRIMARY CAREMD [Primary Care Provider] - 3-5 Days Time of Disposition: 13:34
[2021-05-15 13:30] LABS: Basophils % (Auto) 0.5 % (0.0-1.8); Eosinophils # (Auto) 0.2 K/mm3 (0.0-0.4); Hematocrit 44.4 % (30.3-42.9); Hemoglobin 14.8 gm/dl (10.1-14.3); Lymphocytes # (Auto) 3.9 K/mm3 (1.2-5.4); Lymphocytes % (Auto) 51.7 % (13.4-35.0); Mean Corpuscular HGB Conc 33 % (30-34); Mean Corpuscular Volume 91 fl (79-97); Monocytes # (Auto) 0.7 K/mm3 (0.0-0.8); Monocytes % (Auto) 8.7 % (0.0-7.3); Platelet Count 269 K/mm3 (140-440)
[2021-05-15 13:58] LABS: Alanine Aminotransferase 103 units/L (7-56); Albumin 4.3 g/dL (3.9-5); BUN/Creatinine Ratio 5; Blood Urea Nitrogen 4 mg/dL (7-17); Calcium 9.4 mg/dL (8.4-10.2); Hemolysis Index 41
[2021-05-15 14:00] LABS: Bilirubin,Direct < 0.2 mg/dL (0-0.2)
[2021-05-15] MEDS ORDERED: SODIUM CHLORIDE 0.9% 1000 ML 1,000 ML IV ONE ×2 (14:05→22:23)
[2021-05-15 15:17] LABS: Bilirubin,Urine NEG (Negative); Blood,Urine NEG (Negative); Color,Urine Yellow (Yellow); Protein,Urine <15 mg/dL mg/dL (Negative); Urobilinogen,Urine < 2.0 mg/dL (<2.0)
[2021-05-15 15:25] LABS: Amphetamine Screen,Urine Negative; Cannabinoid Screen,Urine Negative; Cocaine Screen,Urine Negative; Methadone Screen,Urine Negative; Opiate Screen,Urine Negative
[2021-05-15 16:24] LABS: Benzodiazepines Screen,Urine Positive
--- NOTE | 2021-05-16 11:41 | Consultation ---
History of Present Illness - Reason for Consult Consult date: 05/16/21 Reason for consult: ETOH - History of Present Psychiatric Illness Per ER Note: 50-year-old female, history of alcohol abuse, schizophrenia, bipolar disorder, hypertension, diabetes, presents to ED for evaluation. Per EMS, patient was released from [place] on yesterday for alcohol detox. Patient apparently told EMS that they released her too soon. Patient's son called EMS because patient was agitated and violent with him. When EMS arrived, they found patient in her room drinking a bottle of peach vodka. Patient apparently made the statement that she wanted to kill "herself and everybody else." At this time, patient is intoxicated, agitated, yelling, cursing, not answering any questions. Shannon Watts is a 50y/o patient brought to the ER after son says she became violent. During my evaluation of the patient she is crying. She is cooperative and polite. She says her son is a compulsive liar and she was never violent with him. The patient admits to being an alcoholic. She says "I want to stop drinking but I've been to so many detox facilities and they are not helping me." She says "I just got out of one." The patient denies SI.HI. She says "I'm not a threat to myself or nobody else." She denies hallucinations of any kind. The patient says "I've been on my job for 27 years and I put in on hold to get my drinking under control." She says she's thinking about going to another state like [place] to get help. She says "[place] is not helping me fix the problem." The patient says she has a history of bipolar and schizophrenia and she has been complaint with her meds. PAST PSYCHIATRIC HISTORY: Diagnoses: bipolar, schizophrenia Suicide attempts or Self-harm behavior: Denies Prior psychiatric hospitalizations: Yes Substance Abuse history: ETOH Previous psychiatric medications tried: seroquel, haldol, ativan Outpatient treatment: Yes PAST MEDICAL HISTORY: None reported or document Family Psychiatric History: None reported or documented SOCIAL HISTORY Marital Status: Living Arrangements: Son lives with her Employment Status: Employed Access to guns/weapons: Denies Education: yes History of Abuse: denies Legal History: Denies REVIEW OF SYSTEMS Constitutional: Negative for weight loss ENT: Negative for stridor Respiratory: Negative for cough or hemoptysis All other systems reviewed and are negative MENTAL STATUS EXAMINATION General Appearance and Behavior: Age appropriate, good hygiene, wearing appropriate clothes, calm, polite, cooperative Cooperation: Cooperative Psychomotor Behavior: Psychomotor normal Mood: upset Affect and affective range: Congruent with stated mood, tearful Thought Process: goal directed Thought Content: None Speech: Normal volume, Regular rate and rhythm, Suicidal Ideation: Denies Homicidal Ideation:Denies Hallucinations: Denies Delusions: Denies Impulse Control: limited Insight and Judgment: limited Memory: limited Attention: attentive Orientation: alert and oriented Assessment (1)ETOH Dependence Treatment Plan Continue home medications previously prescribed The patient to comply with previously prescribed medications Risks, benefits and alternatives of medications discussed with the patient, questions answered and consent obtained from patient. PSYCHOTHERAPY: Supportive psychotherapy provided MEDICAL: Per primary team DELIRIUM PRECAUTIONS: Please re-orient patient frequently, keep lights on during the day, and minimize benzodiazepines and opiates as these medications could worsen patient's confusion. COMMUNITY RELATIONS COORDINATOR: Defer to primary DISPOSITION: Do not recommend acute inpatient psychiatric hospitalization at this time. The patient to abstain from all illicit drug use. The automatic log cut off sawyer to give the patient all necessary outpatient resources including rehab FOLLOW-UP: Will sing off. Thanks Case staffed with Dr. Rosario Medications and Allergies Allergies Allergy/AdvReac Type Severity Reaction Status Date / Time lisinopril Allergy Vomiting Verified 05/16/21 08:12 Home Medications Medication Instructions Recorded Confirmed Last Taken Type Aspirin [Aspirin BABY CHEW TAB] 81 mg PO QDAY 11/03/19 11/03/19 Unknown History Insulin NPH Hum/Reg Insulin Hm 50 unit SQ BID 11/03/19 11/03/19 Unknown History [HumuLIN 70/30 Kwikpen] Insulin Regular, Human [HumuLIN R] 10 unit SQ DAILY 11/03/19 11/03/19 Unknown History Quetiapine Fumarate [SEROquel] 50 mg PO QDAY 11/03/19 11/03/19 Unknown History Quetiapine Fumarate [SEROquel] 600 mg PO HS 11/03/19 11/03/19 Unknown History amLODIPine 5 mg PO DAILY 11/03/19 11/03/19 Unknown History hydroCHLOROthiazide 25 mg PO DAILY 11/03/19 11/03/19 Unknown History [Hydrochlorothiazide] metFORMIN [Glucophage] 500 mg PO QDAY 11/03/19 11/03/19 Unknown History Pantoprazole [Protonix TAB] 40 mg PO BID #60 tablet 11/04/19 Unknown Rx Mental Status Exam - Vital signs Last Vital Signs Temp 98.1 F 05/15/21 14:09 Pulse 93 H 05/15/21 17:30 Resp 12 05/15/21 14:40 BP 132/72 05/15/21 22:48 Pulse Ox 99 05/16/21 08:24 Results Result Diagrams: 05/15/21 12:57 05/15/21 12:57 Abnormal lab results 05/15/21 05/15/21 05/15/21 Range/Units 12:57 12:57 12:57 Hgb 14.8 H (10.1-14.3) gm/dl Hct 44.4 H (30.3-42.9) % Lymph % (Auto) 51.7 H (13.4-35.0) % Thomas % (Auto) 8.7 H (0.0-7.3) % Seg Neutrophils % 37.1 L (40.0-70.0) % Carbon Dioxide 21 L (22-30) mmol/L BUN 4 L (7-17) mg/dL Glucose 115 H (65-100) mg/dL AST 198 H (5-40) units/L ALT 103 H (7-56) units/L Salicylates < 0.3 L (2.8-20.0) mg/dL Acetaminophen (10.0-30.0) ug/mL Plasma/Serum Alcohol (0-0.07) % 05/15/21 05/15/21 05/15/21 Range/Units 12:57 12:57 23:11 Hgb (10.1-14.3) gm/dl Hct (30.3-42.9) % Lymph % (Auto) (13.4-35.0) % Thomas % (Auto) (0.0-7.3) % Seg Neutrophils % (40.0-70.0) % Carbon Dioxide (22-30) mmol/L BUN (7-17) mg/dL Glucose (65-100) mg/dL AST (5-40) units/L ALT (7-56) units/L Salicylates (2.8-20.0) mg/dL Acetaminophen 5.0 L (10.0-30.0) ug/mL Plasma/Serum Alcohol 0.34 H 0.10 H (0-0.07) % All other labs normal.
[2021-05-16 11:51] VITALS: BP 137/98
== END 2021-05-16 14:49 | disposition home or self-care (01) ==
LOC: ED 12:39
DX: F10.129 Alcohol abuse with intoxication, unspecified (principal); I10 Essential (primary) hypertension; E11.9 Type 2 diabetes mellitus without complications; G43.909 Migraine, unspecified, not intractable, without status migrainosus; J44.9 Chronic obstructive pulmonary disease, unspecified
CPT/HCPCS: 36415; 80048; 80076; 80307; 81001; 85025; 96360; 96372; 99284; J2060; J7030; 80320; G0480